=== PATIENT | male | born 1995 | race Two or more races ===

== ENCOUNTER 2018-01-17 16:17 | Emergency (ER) | payer OTHER ==
[2018-01-17] MEDS: CLINDAMYCIN 900 MG in APPROPRIATE DILUENT 1 EA IV (17:16)
== END 2018-01-17 18:18 | disposition home or self-care (01) ==
LOC: M ED 16:17
DX: J02.9 Acute pharyngitis, unspecified (principal); Z88.0 Allergy status to penicillin; F17.210 Nicotine dependence, cigarettes, uncomplicated
CPT/HCPCS: 96365